=== PATIENT | female | born 1950 | race Caucasian/White ===

== ENCOUNTER 2018-02-04 14:12 | Outpatient (CLI) | payer MEDICARE | END 2018-02-04 14:13 | disposition home or self-care (01) | LOC: BICMAMMO 14:12 | PROVIDERS: ATTEND Internal Medicine | DX: R92.8 Other abnormal and inconclusive findings on diagnostic imaging of breast (principal); Z80.3 Family history of malignant neoplasm of breast | CPT/HCPCS: 77065; G0279 ==

== ENCOUNTER 2018-06-24 14:02 | Outpatient (CLI) | payer MEDICARE ==
--- NOTE | 2018-06-24 15:36 | CT ---
CONTRAST ENHANCED CT IMAGES OF CHEST: HISTORY: Right upper lobe nodular density. Evaluate for pneumonia. FINDINGS: Contrast-enhanced CT of the chest is obtained. Areas of ill-defined density seen in the right upper lobe axial image #33 diameter measuring approxim ately 1.3 cm. Area of airspace opacity diameter measuring approximately 2.4 cm seen in the right upper lobe anteriorly. Additional tiny approximately 2 mm lung parenchymal nodular density also seen in the right upper lobe axial image #44. These may represent possible right upper lobe mass versus areas of pneumonia. Correlate with history and follow-up imaging. The left lung is well aerated. Right hilar and subcarinal lymph node calcification seen. IMPRESSION: Areas of patchy airspace opacities in the right upper lobe. These may represent possible areas of pne umonia. Follow-up CT images to confirm resolution recommended. Transcribed Date/Time: 06/24/2018 3:46 PM
[2018-06-24] MEDS ORDERED: ISOVUE-370 76%-LOCM 1 ML ONE (16:43)
== END 2018-06-24 14:03 | disposition home or self-care (01) ==
LOC: BICCT 14:02
PROVIDERS: ATTEND Internal Medicine
DX: R91.1 Solitary pulmonary nodule (principal)
CPT/HCPCS: 71260; 82565; Q9966

== ENCOUNTER 2018-07-22 08:04 | Outpatient (CLI) | payer MEDICARE ==
--- NOTE | 2018-07-22 09:01 | MRI ---
MRI LUMBAR SPINE NONCONTRAST: HISTORY: Lumbar region pain. Spondylolisthesis. COMPARISON: None FINDINGS: Heterogeneous marrow signal intensity of the lumbar vertebra, likely due to senescent change. 3.4 mm of retrolisthesis of L2 upon L3, 4.5 mm of retrolisthesis of L3 upon L4. No significant STIR hyperintensity to suggest vertebral body edema or ligamentous injury. T2 hyperintensities involving the left or right neural foramen at S2 likely representing peroneal sle rudy cysts Appropriate signal intensity of the visualized paraspinal muscles. T2 hyperintensities in the left and right renal pelvises as well as right renal cortex represent para pelvic and cortical cysts Conus medullaris terminates at the upper aspect of L1. T12-L1:Adequate disc hydration. No significant central canal stenosis or neural foraminal narrowing. L1-L2:Mild to moderate loss of disc space height and disc desiccation. Generalized disc bulge, ligame ntum flavum thickening and facet hypertrophy result in mild stenosis. Mild right foraminal narrowing. Left neural foramen is patent. L2-L3:Desiccation with moderate loss of disc space height. Generalized disc bulge with a small centra l disc perfusion. Mild central canal stenosis. Mild right and moderate left foraminal narrowing. L3-L4: Mild loss of disc space height. Minimal central canal stenosis secondary to generalized disc b ulge. Mild narrowing of both subarticular zones with disc material abutting but not obscuring either traversing L4 nerve root. Mild right and mild to moderate left foraminal narrowing. L4-L5:Desiccation with mild to moderate loss of disc space height. Broad-based disc bulge, ligamentum flavum thickening and facet hypertrophy result in mild to moderate central canal stenosis. Narrowing of both subarticular zones with partial obscuration of bilateral traversing L5 nerve roots. Moderate right and moderate to severe left foraminal narrowing. L5-S1:No significant central canal stenosis. Mild bilateral foraminal narrowing. There is bilateral f acet hypertrophy IMPRESSION: 1. Spondylolisthesis as described above. 2. No evidence of severe central canal stenosis. Nevertheless, there is narrowing of subarticular zon es at L3-L4 and L4-L5. There is partial obscuration of bilateral traversing L5 nerve roots. Transcribed Date/Time: 07/22/2018 9:12 AM
--- NOTE | 2018-07-22 10:26 | RAD ---
LUMBAR SPINE 4 VIEWS: Date: 07/22/18 HISTORY: Spondylolisthesis. Back pain. Exam performed weightbearing with AP and lateral views. Lateral views were obtained with neutral flex ion and extension positions. FINDINGS: Lumbar vertebra maintain height. There are mild to moderate degenerative changes with loss of disc sp florentin at all levels. There is a mild posterolisthesis of L2 on L3 measured at approximately 5 mm in the neutral position. Prominent facet hypertrophy at L4-5 and L5-S1. The posterolisthesis at L2-3 reduce s slightly with flexion. IMPRESSION: Mild to moderate degenerative changes of the lumbar spine. Mild posterolisthesis at L2-3. POS: [facility]
== END 2018-07-22 08:05 | disposition home or self-care (01) ==
LOC: BICMRI 08:04
PROVIDERS: ATTEND Anesthesiology Pain Medicine
DX: M43.16 Spondylolisthesis, lumbar region (principal); M47.816 Spondylosis without myelopathy or radiculopathy, lumbar region
CPT/HCPCS: 72110; 72148

== ENCOUNTER 2018-09-16 12:32 | Outpatient (CLI) | payer MEDICARE ==
[~2018-09-16 12:32] MED LIST: Iopamidol 370 76% 100 ML VIAL ONE
--- NOTE | 2018-09-16 15:51 | CT ---
CT CHEST WITH AND WITHOUT CONTRAST: Date: 09/16/18 Axial tomograms obtained through the chest post IV contrast. INDICATION: Follow-up lung masses and infiltrate. Comparison made to recent chest CT of 06/24/18. FINDINGS: Lungs show hyperexpansion. The nodular opacity seen in the right upper lobe peripherally on the prior exam has significantly dec reased. There is some residual subtle density at this site today seen on image 45 of 170. Findings wo uld indicate resolution of inflammatory process. Likewise, the confluent opacity seen anterior right upper lobe on the prior study has also significan tly resolved. There is no some residual parenchymal stranding in this region as seen on image 78 of a xial. No new infiltrate or mass density. The pulmonary arteries are well opacified and there is no evidence of proximal pulmonary embolus. Tho racic aorta is opacified and unremarkable. There are calcified mediastinal and right hilar lymph node s, which were noted previously. Upper abdomen images are unremarkable. IMPRESSION: Resolution of the confluent right lung opacities noted on CT of 06/24/18 indicating resolution of an infectious process. There are chronic lung changes. Some residual densities at these sites remain as described above. POS: [facility]
== END 2018-09-16 12:33 | disposition home or self-care (01) ==
LOC: BICCT 12:32
PROVIDERS: ATTEND Internal Medicine
DX: R91.8 Other nonspecific abnormal finding of lung field (principal)
CPT/HCPCS: 71270; 82565; Q9967

== ENCOUNTER 2019-02-10 13:09 | Outpatient (CLI) | payer MEDICARE ==
--- NOTE | 2019-02-10 15:39 | MMO ---
Bilateral MAMMO Bilat Screen [facility]. CLINICAL HISTORY: Patient is 68 years old and is seen for screening. The patient has the following family history of breast cancer: paternal aunt, malignant (generic) and paternal grandmother, malignant (generic). The patient has no personal history of cancer. The patient has a history of right Excisional Biopsy in 1971 - benign, right Excisional Biopsy in 1974 - benign and right Excisional Biopsy in 1980 - benign. VIEWS: The views performed were: bilateral craniocaudal with tomosynthesis and bilateral mediolateral oblique with tomosynthesis. FILMS COMPARED: The present examination has been compared to prior imaging studies performed at [facility] on 02/04/2018, and at [facility] on 10/01/2015, 12/29/2017 and 12/30/2017. This study has been interpreted with the assistance of computer-aided detection. MAMMOGRAM FINDINGS: The breasts are heterogeneously dense, which could obscure a lesion on mammography. Finding 1: There are stable benign appearing calcifications seen in both breasts. Finding 2: There is a stable post-surgical scar seen in the right breast. There are no suspicious masses, suspicious calcifications, or new areas of architectural distortion. IMPRESSION: THERE IS NO MAMMOGRAPHIC EVIDENCE OF MALIGNANCY. A ROUTINE FOLLOW-UP MAMMOGRAM IN 1 YEAR IS RECOMMENDED. THE RESULTS OF THIS EXAM WERE SENT TO THE PATIENT. ACR BI-RADS Category 2 - Benign finding MAMMOGRAPHY NOTE: 1. A negative mammogram report should not delay a biopsy if a dominant of clinically suspicious mass is present. 2. Approximately 10% to 15% of breast cancers are not detected by mammography. 3. Adenosis and dense breasts may obscure an underlying neoplasm. Reported by: ANNITA BUTTS MD Electonically Signed: [id number]
== END 2019-02-10 13:10 | disposition home or self-care (01) ==
LOC: BICMAMMO 13:09
PROVIDERS: ATTEND Internal Medicine
DX: Z12.31 Encounter for screening mammogram for malignant neoplasm of breast (principal); Z80.3 Family history of malignant neoplasm of breast
CPT/HCPCS: 77063; 77067

== ENCOUNTER 2020-03-12 14:56 | Outpatient (CLI) | payer MEDICARE ==
--- NOTE | 2020-03-12 15:35 | MMO ---
Bilateral MAMMO Bilat Screen [facility]. CLINICAL HISTORY: Patient is 69 years old and is seen for screening. The patient has the following family history of breast cancer: paternal aunt, malignant (generic) and paternal grandmother, malignant (generic). The patient has no personal history of cancer. The patient has a history of right Excisional Biopsy in 1971 - benign, right Excisional Biopsy in 1974 - benign and right Excisional Biopsy in 1980 - benign. VIEWS: The views performed were: bilateral craniocaudal with tomosynthesis and bilateral mediolateral oblique with tomosynthesis. FILMS COMPARED: The present examination has been compared to prior imaging studies performed at [facility] on 02/04/2018 and 02/10/2019, and at [facility] on 12/29/2017 and 12/30/2017. This study has been interpreted with the assistance of computer-aided detection. MAMMOGRAM FINDINGS: The breasts are heterogeneously dense, which could obscure a lesion on mammography. There are stable benign appearing calcifications seen in both breasts. Nodularity is stable. There are no suspicious masses, suspicious calcifications, or new areas of architectural distortion. IMPRESSION: THERE IS NO MAMMOGRAPHIC EVIDENCE OF MALIGNANCY. A ROUTINE FOLLOW-UP MAMMOGRAM IN 1 YEAR IS RECOMMENDED. THE RESULTS OF THIS EXAM WERE SENT TO THE PATIENT. ACR BI-RADS Category 2 - Benign finding MAMMOGRAPHY NOTE: 1. A negative mammogram report should not delay a biopsy if a dominant of clinically suspicious mass is present. 2. Approximately 10% to 15% of breast cancers are not detected by mammography. 3. Adenosis and dense breasts may obscure an underlying neoplasm. Reported by: FAIZA KWOK MD Electonically Signed: [id number]
== END 2020-03-12 14:57 | disposition home or self-care (01) ==
LOC: BICMAMMO 14:56
PROVIDERS: ATTEND Internal Medicine
DX: Z12.31 Encounter for screening mammogram for malignant neoplasm of breast (principal); Z80.3 Family history of malignant neoplasm of breast; Z91.89 Other specified personal risk factors, not elsewhere classified
CPT/HCPCS: 77063; 77067

== ENCOUNTER 2021-03-14 08:52 | Outpatient (CLI) | payer MEDICARE | END 2021-03-14 08:53 | disposition home or self-care (01) | LOC: BICMAMMO 08:52 | PROVIDERS: ATTEND Internal Medicine | DX: Z12.31 Encounter for screening mammogram for malignant neoplasm of breast (principal); M81.0 Age-related osteoporosis without current pathological fracture; M85.851 Other specified disorders of bone density and structure, right thigh; M85.852 Other specified disorders of bone density and structure, left thigh; Z91.89 Other specified personal risk factors, not elsewhere classified; Z80.3 Family history of malignant neoplasm of breast | CPT/HCPCS: 77063; 77067; 77080 ==

== ENCOUNTER 2023-12-09 13:05 | Outpatient (CLI) | payer MEDICARE | END 2023-12-09 13:06 | disposition home or self-care (01) | LOC: BICMAMMO 13:05 | PROVIDERS: ATTEND Internal Medicine | DX: Z12.31 Encounter for screening mammogram for malignant neoplasm of breast (principal); Z80.3 Family history of malignant neoplasm of breast; Z91.89 Other specified personal risk factors, not elsewhere classified | CPT/HCPCS: 77063; 77067 ==

== ENCOUNTER 2024-12-12 10:55 | Outpatient (CLI) | payer MEDICARE | END 2024-12-12 10:56 | disposition home or self-care (01) | LOC: BICMAMMO 10:55 | PROVIDERS: ATTEND Internal Medicine | DX: Z12.31 Encounter for screening mammogram for malignant neoplasm of breast (principal); Z80.3 Family history of malignant neoplasm of breast; Z91.89 Other specified personal risk factors, not elsewhere classified | CPT/HCPCS: 77063; 77067 ==